=== PATIENT | male | born 1960 | race Caucasian/White ===

== ENCOUNTER 2020-12-05 11:10 | Day surgery (SDC) | payer BC ==
[~2020-12-05] VITALS: Ht 172.7 cm; Wt 118.2 kg
--- NOTE | ~2020-12-05 | HEMODYNAMI ---
PATIENT:KELLEN QUICK MEDICAL RECORD: [id number] : 60 LOCATION:[facility] ADMISSION DATE: 12/05/20 Generatedon:113:27 Patient name: KELLEN QUICK Patient #: [id number] SSN: [id number] : 1960 Date of study: 12/05/2020 Page: Of Hemodynamic Procedure Report Patient Data Patient Demographics Procedure consent was obtained First Name: KELLEN Gender: Male Last Name: YNES : 1960 Patient #: [id number] Age: 60 year(s) Race: Unknown SSN: [id number] Additional ID: [id number] Contact details [address]: [address] [place] [address] State: [place] City: [place] Zip code: [address] Admission Admission Data Admission Date: 12/05/2020 Admission Time: 11:10 Arrival Date: 12/05/2020 Arrival Time: 0:00 Admit Source: Other Insurance Payor: Private health insurance [facility] #: [id number] Height (in.): 67.72 BSA: 2.28 (m2) Height (cm.): 172 BMI: 39.89 (kg/m2) Weight (lbs.): 260.15 Weight (kg.): 118 Lab Results Lab Result Date: 12/05/2020 Lab Result Time: 0:00 Biochemistry Name Units Result Min Max BUN mg/dl 14 --(--*-)-- 7 18 Creatinine mg/dl 0.7 --(*---)-- 0.6 1.3 eGFR ml/min 90 --(*---)-- 90 120 NONAFRICAN CBC Name Units Result Min Max Hemoglobin g/dl 14.1 --(*---)-- 13.5 17.5 Procedure Procedure Types Cath Procedure Diagnostic Procedure LHC LHC w/Coronaries Sedation Charges Moderate Sedation 10-24 minutes Procedure Description Procedure Date Procedure Date: 12/05/2020 Procedure Start Time: 13:10 Procedure End Time: 13:24 Procedure Staff Name Function Miranda Jay RT Monitor Liz Galo RN Nurse Jorge A Sawyer RN Nurse Debo Mary RT Scrub Terry St MD Performing Physician Procedure Data Cath Procedure Fluoroscopy Diagnostic fluoroscopy Total fluoroscopy Time: 3.2 time: 3.2 min min Diagnostic fluoroscopy Total fluoroscopy dose: 684 dose: 684 mGy mGy Contrast Material Contrast Material Type Amount (ml) Isovue 300 59 Entry Location Entry Primary Successful Side Size Upsize Upsize Entry Closure Jackson ccessful Closure Location (Fr) 1 (Fr) 2 (Fr) Remarks Device Remarks Radial Right 6 Fr Mechanical artery Short Compression Estimated blood loss: 10 ml Diagnostic catheters Device Type Used For End Catheter Placement DIAGNOSTIC [place] 110cm 5 Procedure Fr catheter ([id number]) DIAGNOSTIC Christian 110cm Procedure 5Fr catheter ([id number]) Procedure Complications No complications Procedure Medications Medication Administration Route Dosage 0.9% NaCl I.V. 100 ml/hr Heparin Flush Bag added to field 2 bags (1000units/500ml NS) Oxygen etCO2 Nasal cannula 2 l/min Lidocaine 2% added to field 20 Radial Cocktail added to field 1 syringe (Verapamil 2mg/Nitro 400mcg/Heparin 1500units) Fentanyl I.V. 50 mcg Versed I.V. 1 mg Fentanyl I.V. 50 mcg Versed I.V. 1 mg Hemodynamics Rest BSA: 2.28 (m2) O2 Consumption: Estimated: 275.4 (ml/min) O2 Consumption indexed: Estimated:120.79 (ml/min/m) Heart Rate: 79 (bpm) Pressure Samples Time Site Value (mmHg) Purpose Heart Use Rate(bpm) 13:12 LV 115/-3,8 Snapshot 79 13:12 LV 87/-4,4 Snapshot 85 Gradients Valve Time Site Site Mean SEP/DFP Peak To Heart Use 1 2 (mmHg) (sec/min) Peak Rate (mmHg) (bpm) Aortic 13:13 LV AO 67 Snapshots Pre Cath Intra NCS Post Cath Vital Signs Time Heart Resp SPO2 etCO2 NIBP Rhythm Pain Sedation Rate (ipm) (%) (mmHg) (mmHg) Status Level (bpm) 12:51:11 73 19 96 0 107/64(89) NSR 0 (11) 10(A) , No pain 12:55:25 66 21 96 28.9 109/69(89) NSR 0 (11) 10(A) , No pain 12:59:42 76 19 93 33.4 103/66(87) NSR 0 (11) 10(A) , No pain 13:03:57 71 16 95 40 106/62(84) NSR 0 (11) 10(A) , No pain 13:08:11 71 18 96 32.6 101/65(93) NSR 0 (11) 10(A) , No pain 13:12:25 77 19 96 30.4 97/60(77) NSR 0 (11) 9(A) , No pain 13:16:35 74 17 94 31.8 98/67(84) NSR 0 (11) 9(A) , No pain 13:20:47 74 18 95 31.9 106/67(86) NSR 0 (11) 10(A) , No pain 13:25:03 71 17 96 32.6 105/65(85) NSR 0 (11) 10(A) , No pain Medications Time Medication Route Dose Verified Delivered Reason Notes E ffectiveness by by 12:58:39 0.9% NaCl I.V. 100 Terry Jorge A used for ml/hr Maciel Sawyer grounds foreman 12:58:48 Heparin Flush added 2 bags Terry Terry used for Bag to Maciel St MD procedure (1000units/500ml field NS) 12:58:57 Oxygen etCO2 2 l/min Terry Jorge A used for Nasal Maciel Sawyer grounds foreman cannula 12:59:07 Lidocaine 2% added 20ml Terry Terry for local to vial Maciel St MD anesthetic field 12:59:17 Radial Cocktail added 1 Terry Terry used for (Verapamil to syringe Maciel St MD procedure 2mg/Nitro field 400mcg/Heparin 1500units) 13:08:47 Fentanyl I.V. 50 mcg Terry Jorge A for Maciel Sawyer RN sedation 13:08:55 Versed I.V. 1 mg Terry Jorge A for Maciel Sawyer RN sedation 13:16:54 Fentanyl I.V. 50 mcg Terry Jorge A for Maciel Sawyer RN sedation 13:16:58 Versed I.V. 1 mg Terry Jorge A for Maciel Sawyer RN sedation Procedure Log Time Note 12:35:50 Admit Source: Other 12:35:53 Arrival Date: 12/05/2020 12:00:00 AM 12:36:45 Insurance Payor : Private health insurance 12:39:04 Patient Height : 67.72 inches 12:39:07 Patient Weight : 260.15 lbs 12:39:38 Lab Result : eGFR NONAFRICAN 90 ml/min 12:39:38 Lab Result : Hemoglobin 14.1 g/dl 12:39:38 Lab Result : BUN 14 mg/dl 12:39:38 Lab Result : Creatinine 0.7 mg/dl 12:39:50 Diagnostic Cath Status : Elective 12:41:22 Procedure Status Elective Heart Cath (OP). 12:41:25 Liz Galo RN sent for patient. Start room use. 12:41:27 Time tracking: Regular hours (M-F 7:00 - 5:00) 12:41:32 Plan of Care:Hemodynamics will remain stable., Cardiac rhythm will remain stable., Comfort level will be maintained., Respiratory function will remain adequate., Patient/ family verbilizes understanding of procedure., Procedure tolerated without complication., Recovers from procedure without complications.. 12:41:53 Patient received from Pre/Post Procedure Room to CCL 1 Alert and oriented. Tansferred to table in Supine position. 12:41:56 Signed procedure consent form obtained from patient. 12:41:57 Warm blankets applied, and remy hugger turned on for patient comfort. 12:41:58 Correct patient and procedure confirmed by team. 12:41:59 ECG and BP/O2 sat monitors applied to patient. 12:42:06 H&P Date Dictated: 12/05/2020 Within 30 days and on chart., H&P Addendum completed by physician on day of procedure. (MUST COMPLETE FOR ALL OUTPATIENTS). 12:42:08 Pre-procedure instructions explained to patient. 12:42:24 Family in patients room. 12:42:27 Patient NPO since Midnight. 12:42:33 Is patient on blood thinner?No 12:42:35 Patient diabetic? Yes. 12:42:37 If diabetic: On Metformin? N/A 12:42:44 Snore? Yes 12:42:45 Sleep apnea? Yes 12:42:51 Dentures? Unknown ? 12:43:03 IV patent on arrival in left forearm with 0.9% NaCl at [facility]. 12:43:08 Lab results completed and on chart. 12:49:58 Vital chart was started 12:57:01 Right Radial & Right Groin area was prepped with chlora-prep and draped in sterile fashion 12:57:02 Alarms reviewed by R. N. 12:57:03 Sharps counted by scrub and verified by R.N. 12:58:39 0.9% NaCl 100 ml/hr I.V. was administered by Jorge A Sawyer RN; used for procedure; Verbal order read back and verified. 12:58:48 Heparin Flush Bag (1000units/500ml NS) 2 bags added to field was administered by Terry St MD; used for procedure; Verbal order read back and verified. 12:58:57 Oxygen 2 l/min etCO2 Nasal cannula was administered by Jorge A Sawyer RN; used for procedure; Verbal order read back and verified. 12:59:07 Lidocaine 2% 20ml vial added to field was administered by Terry St MD; for local anesthetic; Verbal order read back and verified. 12:59:17 Radial Cocktail (Verapamil 2mg/Nitro 400mcg/Heparin 1500units) 1 syringe added to field was administered by Terry St MD; used for procedure; Verbal order read back and verified. 13:08:18 --------ALL STOP TIME OUT------ 13:08:18 Final Timeout: patient, procedure, and site verified with staff and physician. All members of the team are in agreement. 13:08:23 Right Radial & Right Groin site verified by team. 13:08:33 Fire Safety Assessment: A--An alcohol-based skin anteseptic being used preoperatively., C--Open oxygen or nitrous oxide is being used., D--An ESU, laser, or fiber-optic light is being used. 13:08:36 Zero performed for pressure channel P1 13:08:45 Zero performed for pressure channel P1 13:08:47 Fentanyl 50 mcg I.V. was administered by Jorge A Sawyer RN; for sedation; Verbal order read back and verified. 13:08:48 Zero performed for pressure channel P1 13:08:55 Versed 1 mg I.V. was administered by Jorge A Silverio RN; for sedation; Verbal order read back and verified. 13:09:01 Physical assessment completed. ASA score P 3 - A patient with severe systemic disease as per Terry St MD. 13:09:05 1) 90+ Normal kidney functon but urine findings or structural abnormalities or genetic trait point to kidney disease. 13:09:10 Maximum allowable contrast dose (3.7 X eGFR X 0.75)250 ml. 13:09:15 Sedation plan: IV Moderate Sedation Medication:Versed, Fentanyl 13:09:28 Use device set Radial Dx or PCI 13:09:29 ACIST Syringe (53202) opened to sterile field. 13:09:30 Medline Cath Pack ([id number]) opened to sterile field. 13:09:30 Bag Decanter (2002S) opened to sterile field. 13:09:31 ACIST Hand Control (49325) opened to sterile field. 13:09:31 ACIST Manifold (12932) opened to sterile field. 13:09:34 MBrace Wrist Support ([id number]) opened to sterile field. 13:09:35 NEEDLE Cook 21G 4cm Radial (B90266) opened to sterile field. 13:09:37 EMERALD Guide Wire (407-465) opened to sterile field. 13:09:38 SHEATH 6FR RAIN (9365188) opened to sterile field. 13:09:47 Procedure started. 13:09:47 Full Disclosure recording started 13:10:07 Local anesthetic to right radial artery with Lidocaine 2% by Miranda ANDERSON(R).INITIAL ACCESS ONLY 13:12:27 A 6 Fr Short sheath was inserted into the Right Radial artery 13:12:38 A DIAGNOSTIC [place] 110cm 5 Fr catheter (745119) was advanced over the wire and used for Procedure. 13:13:09 LV angiography performed. 13:13:25 LV gram done using MILLER 13:13:30 EF : 50 % 13:14:25 RCA angiography performed. 13:15:39 Catheter removed. 13:15:52 A DIAGNOSTIC Christian 110cm 5Fr catheter (501703) was advanced over the wire and used for Procedure. 13:15:59 LCA angiography performed. 13:16:54 Fentanyl 50 mcg I.V. was administered by Jorge A Sawyer RN; for sedation; Verbal order read back and verified. 13:16:58 Versed 1 mg I.V. was administered by Jorge A Sawyer RN; for sedation; Verbal order read back and verified. 13:17:31 Catheter removed. 13:19:55 Sheath removed intact; hemostasis achieved with Mechanical Compression to the Right Radial artery. 13:19:58 Procedure ended.(Physican Out) 13:20:25 Fluoroscopy time 03.20 minutes. 13:20:30 Flurop Dose total: 684 13:20:30 Fluoroscopy dose: 684 mGy 13:20:37 Dose Area Product 65634 mGy/cm. 13:20:42 Contrast amount:Isovue 300 59ml. 13:20:45 Maximum allowable dose exceeded? No. 13:20:46 Sharps counted by scrub and verified by R.N. 13:20:49 Mcgraws band inflated with 10cc of air. 13:21:50 Insertion/operative site no bleeding no hematoma. 13:21:54 Post Procedure Pulses reassessed and unchanged 13:21:57 Post-procedure physical assessment completed. ASA score P 2 - A patient with mild systemic disease as per Terry St MD. 13:22:07 Post procedure rhythm: unchanged. 13:22:11 Estimated blood loss: 10 ml 13:22:12 Post procedure instruction explained to patient.Patient verbalizes understanding. 13:22:40 Procedure type changed to Cath procedure, Diagnostic procedure, LHC, [facility] w/Coronaries, Sedation Charges, Moderate Sedation 10-24 minutes 13:22:41 Procedure and supply charges have been captured, reviewed, submitted and are correct. 13:24:09 Procedure Complication : No complications 13:24:13 Vital chart was stopped 13:24:14 [facility] Findings: mild to moderate CAD (<70%) 13:24:16 Operative report dictated upon procedure completion. 13:24:18 Report given to Pre/Post Procedure Room. 13:24:21 Patient transfered to Pre/Post Procedure Room with Stretcher. 13:24:23 Procedure ended. 13:24:23 Full Disclosure recording stopped 13:24:45 End room use (Document Last) 13:24:45 End room use (Document Last) 13:25:13 End room use (Document Last) 13:25:36 End room use (Document Last) Device Usage Item Name Manufacture Quantity Catalog Hospital Part Current Minima l Lot# / Number Charge Number Stock Stock Serial# Code ACIST Acist 1 47448 552808 [id number] [id number] 20 Syringe Medical (45733) Systems Inc Medline Medline 1 [id number] 075325 63252 119180 5 Cath Pack ([id number]) Bag Microtek 1 125727 16497 142475 5 Decanter Medical Inc. () ACIST Hand Acist 1 29747 546068 045803 960402 5 Control Medical (19148) Systems Inc ACIST Acist 1 55251 362913 729867 075037 5 Manifold Medical (61344) Systems Inc MBrace Advanced 1 140-0250-00 209442 65252 689374 5 Wrist Vascular Support Dynamics ([id number]) NEEDLE Cook Cook Medical 1 [id number] 758518 757682 224710 5 21G 4cm Radial (Z95500) EMERALD Cardinal 1 502-057 364702 010017 158733 5 Guide Wire [facility] (802-247) SHEATH 6FR Cardinal 1 [id number] 250432 3532150 312670 5 [facility] ([id number]) DIAGNOSTIC Terumo 1 40-5013 362031 376834 276754 5 [place] 110cm 5 Fr catheter (743439) DIAGNOSTIC Terumo 1 40-5023 969698 878017 779418 5 Christian 110cm 5Fr catheter (409776) Signature Audit [place] Stage Time Signature Unsigned Intra-Procedure 12/05/2020 Miranda Jay 1:25:13 PM RT(R) Intra-Procedure 12/05/2020 Liz Galo RN 1:25:36 PM Intra-Procedure 12/05/[address] MD 1:27:13 PM [place] [address] [place] [address]
[2020-12-05] MEDS ORDERED: TRULICITY1.5 MG/0.5 SC (11:27)
[2020-12-05] MEDS ORDERED: COREG25 MG PO (11:27)
[2020-12-05] MEDS ORDERED: MOBIC7.5 MG PO (11:27)
[2020-12-05] MEDS ORDERED: FUROSEMIDE40 MG PO (11:28)
[2020-12-05] MEDS ORDERED: CYANOCOBAL1000 MCG/4 IM (11:28)
[2020-12-05] MEDS ORDERED: METFORMIN HCL500 M1 PO (11:30)
[2020-12-05] MEDS ORDERED: OMEPRAZOLE20 M1 PO (11:30)
[2020-12-05] MEDS ORDERED: KLOR-CON 1010 MEQ PO (11:31)
[2020-12-05] MEDS ORDERED: ISOSORBIDE MONO60 M1 PO (11:31)
[2020-12-05] MEDS ORDERED: AMBIEN10 MG PO (11:31)
[2020-12-05] MEDS ORDERED: VIAGRA100 MG PO (11:32)
[2020-12-05] MEDS ORDERED: FOLIC ACID1 MG PO (11:32)
[2020-12-05] MEDS ORDERED: LEVOTHYROXINE175 MCG PO (11:32)
[2020-12-05 11:45] VITALS: BP 145/63; Ht 172.7 cm; Wt 118.2 kg
[2020-12-05 11:55] LABS: BASOPHILS 0.4 % (0-2); EOSINOPHILS 4.6 % (0-7); HEMATOCRIT 42.1 % (42.0-54.0); HEMOGLOBIN 14.1 g/dL (13.5-17.5); IMMATURE GRANULOCYTES 0.5 % (0-5); LYMPHOCYTE ABS# 1.82 10x3/uL (1.32-3.57); LYMPHOCYTES 21.2 % (15-50); MCHC 33.5 g/dL (31.0-37.0); MCV 95.7 fL (80.0-100.0); MEAN PLATELET VOLUME 9.5 fL (7.4-10.4); MONOCYTES 8.4 % (2-11); NEUTROPHIL ABS# 5.57 10x3/uL (1.78-5.38); NEUTROPHILS 64.9 % (40-80); PLATELET COUNT 315 10x3/uL (130-400); RDW 13.2 % (11.5-14.5); WBC 8.6 10x3/uL (4.8-10.8)
[2020-12-05 11:59] LABS: CALC OSMOLALITY 274 mosm/kg (275-300); CALCIUM 8.8 mg/dL (8.5-10.1); CHLORIDE - SERUM 105 mmol/L (98-107); CREATININE - SERUM 0.7 mg/dL (0.6-1.3); GLUCOSE 105 mg/dL (74-106); POTASSIUM - SERUM 4.2 mmol/L (3.5-5.1); SODIUM 137 mmol/L (136-145); UREA NITROGEN 14 mg/dL (7-18); eGFR NON AFRICAN AMERICAN > 90 mL/min (90-120)
[2020-12-05 12:05] LABS: CHOL - HDL RATIO 3.2 ratio (2.3-4.9)
[2020-12-05 12:10] LABS: CARBON DIOXIDE 22.6 mmol/L (21.0-32.0)
--- NOTE | 2020-12-05 13:31 | NUR ---
PT REC'D TO GAME ROOM ATTENDANT RECOVERY ROOM 5 VIA STRETCHER. MONITORS ESTAB. AT BS. SEE VICE PRESIDENT OF RECRUITING FLOWSHEETS. ALARMS ON AND C/L IN REACH.
--- NOTE | 2020-12-05 13:45 | NUR ---
PT RESTING QUIETLY, R WRIST Z BAND SITE C/D/I, NO S/S BLEEDING OR HEMATOMA. R ARM/HAND WARM WITH PALP PULSES AND BRISK CAP REFILL. VSS. ALARMS ON AND C/L IN REACH.
--- NOTE | 2020-12-05 14:15 | NUR ---
R WRIST SITE C/D/I, NO S/S BLEEDING OR HEMATOMA. R ARM/HAND WARM WITH PALP PULSES AND BRISK CAP REFILL. VSS. PT DENIES PAIN OR NEEDS. ALARMS ON AND C/L IN REACH.
--- NOTE | 2020-12-05 14:30 | NUR ---
3CC AIR REMOVED FROM Z BAND, NO S/S BLEEDING OR HEMATOMA. NO S/S BLEEDING OR HEMATOMA. PULSES PALP. VSS. AT BS. PT DENIES PAIN OR NEEDS.
--- NOTE | 2020-12-05 14:37 | NUR ---
DR. SIMON IN TO SEE PT, UPDATE GIVEN AND QUESTIONS ANSWERED.
--- NOTE | 2020-12-05 15:00 | NUR ---
PT SITTING UP IN BED. 5CC AIR REMOVED FROM Z BAND. NO S/S BLEEDING. PULSES PALP. SANDWICH TRAY AND COFFE PROVIDED. WORK RELEASE FORMS FAXED TO DR. VERDUZCO OFFICE AND TO PT WORK IN [place] PER PT REQUEST. ALARMS ON AND C/L IN REACH.
--- NOTE | 2020-12-05 15:20 | NUR ---
ALL AIR REMOVED FROM Z BAND, NO S/S BLEEDING OR HEMATOMA. PULSES PALP. PT ATE ALL OF SANDWICH. DENIES PAIN OR NEEDS. VSS. ALARMS ON AND C/L IN REACH.
--- NOTE | 2020-12-05 15:45 | NUR ---
R WRIST SITE C/D/I, NO S/S BLEEDING OR HEMATOMA. Z BAND OFF, DSG APPLIED. PIV D/C'D INTACT, DSG APPLIED.
--- NOTE | 2020-12-05 15:53 | NUR ---
ALL DISCHARGE INSTRUCTIONS REVIEWED WITH PT AND HIS , INCLUDING RESTRICTIONS, MEDS AND F/U APPT. BOTH VERBALIZE UNDERSTANDING. PT ALLOWED UP TO GET DRESSED AND GO TO BR INDEPENDENTLY.
--- NOTE | 2020-12-05 15:58 | NUR ---
R WRIST SITE C/D/I WITH ARM BOARD IN PLACE. PT D/C'D VIA WC TO PRIVATE VEHICLE WITH ALL PAPERWORK AND BELONGINGS.
== END 2020-12-05 15:58 | disposition home or self-care (01) ==
LOC: D.CATH 11:10
PROVIDERS: ATTEND Internal Medicine Cardiovascular Disease
DX: I25.110 Atherosclerotic heart disease of native coronary artery with unstable angina pectoris (principal); R07.9 Chest pain, unspecified; I10 Essential (primary) hypertension